=== PATIENT | female | born 1965 | race Caucasian/White ===

== ENCOUNTER 2017-02-04 12:04 | Emergency (ER) | payer OTHER | END 2017-02-04 15:20 | disposition home or self-care (01) | LOC: ER1 12:04 | DX: S29.012A Strain of muscle and tendon of back wall of thorax, initial encounter (principal); I10 Essential (primary) hypertension; F17.210 Nicotine dependence, cigarettes, uncomplicated; X50.9XXA Other and unspecified overexertion or strenuous movements or postures, initial encounter; Y93.E9 Activity, other interior property and clothing maintenance; Y92.009 Unspecified place in unspecified non-institutional (private) residence as the place of occurrence of the external cause | CPT/HCPCS: 96372; 99283; J1885 ==

== ENCOUNTER 2021-01-18 16:55 | Emergency (ER) | payer OTHER ==
[~2021-01-18 16:55] MED LIST: DULCOLAX5 MG PO; MOBIC15 MG PO; NORCO 7.5-3251 EACH PO; PROVENTIL HFA6.7 GM INH; VALTREX1000 MG PO; ZITHROMAX250 MG PO
[2021-01-18 17:32] LABS: HEMOGLOBIN 15.6 gm/dl (12.3-15.3); RED BLOOD COUNT 5.17 M/UL (4.00-5.10)
[2021-01-18 17:52] LABS: BUN/CREATININE RATIO 13 (0-10)
[2021-01-18] MEDS ORDERED: ZOFRAN ODT 4 MG4 MG PO (19:29)
[2021-01-18] MEDS ORDERED: CYCLOBENZAPRINE10 MG PO (19:29)
== END 2021-01-18 19:36 | disposition home or self-care (01) ==
LOC: ER1 16:55
PROVIDERS: Family Medicine
DX: M62.838 Other muscle spasm (principal); D69.6 Thrombocytopenia, unspecified; R10.9 Unspecified abdominal pain; Z90.89 Acquired absence of other organs; Z90.710 Acquired absence of both cervix and uterus; Z90.10 Acquired absence of unspecified breast and nipple
CPT/HCPCS: 36415; 80053; 81001; 83690; 85025; 96374; 96375; 99284; J1885; J2270; J2405

== ENCOUNTER 2021-01-19 23:44 | Emergency (ER) | payer OTHER ==
[~2021-01-19 23:44] MED LIST changes: +CYCLOBENZAPRINE10 MG PO; +ZOFRAN ODT 4 MG4 MG PO
[2021-01-20 02:25] LABS: BUN/CREATININE RATIO 27 (0-10)
[2021-01-20 03:07] LABS: HEMOGLOBIN 14.4 gm/dl (12.3-15.3); RED BLOOD COUNT 4.95 M/UL (4.00-5.10); WHITE BLOOD COUNT 10.7 K/UL (4.5-11.0)
[2021-01-20] MEDS ORDERED: PERCOCET 5/325 T1 EA PO (05:14)
== END 2021-01-20 05:25 | disposition home or self-care (01) ==
LOC: ER1 23:44
PROVIDERS: Family Medicine
DX: S39.012A Strain of muscle, fascia and tendon of lower back, initial encounter (principal); R91.1 Solitary pulmonary nodule; M48.061 Spinal stenosis, lumbar region without neurogenic claudication; M51.36 Other intervertebral disc degeneration, lumbar region; F17.210 Nicotine dependence, cigarettes, uncomplicated; Z90.49 Acquired absence of other specified parts of digestive tract; Z90.89 Acquired absence of other organs; Z85.3 Personal history of malignant neoplasm of breast; X50.0XXA Overexertion from strenuous movement or load, initial encounter
CPT/HCPCS: 36415; 72128; 72131; 80053; 81001; 83690; 84703; 85025; 96374; 96375; 99284; J2270; J2405

== ENCOUNTER → 2021-05-18 | Outpatient (CLI) | payer OTHER ==
[~2021-05-18] MED LIST changes: +PERCOCET 5/325 T1 EA PO
== END ==
LOC: KOH-I 10:25
DX: E04.1 Nontoxic single thyroid nodule (principal)
CPT/HCPCS: 76536

== ENCOUNTER → 2021-07-08 | Outpatient (CLI) | payer OTHER | LOC: KOH-I 07-03 11:00 | DX: R91.1 Solitary pulmonary nodule (principal) | CPT/HCPCS: 71250 ==

== ENCOUNTER → 2022-08-03 | Outpatient (CLI) | payer OTHER | LOC: KOH-I 10:30 | DX: F17.210 Nicotine dependence, cigarettes, uncomplicated (principal); R91.8 Other nonspecific abnormal finding of lung field | CPT/HCPCS: 71271 ==